=== PATIENT | female | born 1970 | race Caucasian/White ===

== ENCOUNTER → 2023-10-01 17:24 | Outpatient (REF) | payer OTHER, SELFPAY | LOC: HWWDC 17:24 | PROVIDERS: ATTENDING PHYSICIAN Family Medicine; REFERRING PHYSICIAN Obstetrics & Gynecology | DX: Z12.31 Encounter for screening mammogram for malignant neoplasm of breast (principal) | CPT/HCPCS: 77063; 77067 ==

== ENCOUNTER → 2024-04-02 17:00 | Outpatient (REF) | payer OTHER, SELFPAY | LOC: HWRAD 17:00 | PROVIDERS: ATTENDING PHYSICIAN Internal Medicine Rheumatology; FAMILY PHYSICIAN Family Medicine | DX: M06.4 Inflammatory polyarthropathy (principal); M13.0 Polyarthritis, unspecified | CPT/HCPCS: 73030; 73100; 73120; 73560; 73565; 73600; 73630 ==